=== PATIENT | female | born 1960 | race Caucasian/White ===

== ENCOUNTER 2025-06-14 18:08 | Emergency (ER) | payer OTHER ==
[2025-06-14 18:36] VITALS: RESP 18; TEMP 97.7
[2025-06-14 18:38] VITALS: BMI 19.3
[2025-06-14 18:44] LABS: ABSOLUTE IMMATURE GRANULOCYTES 0.04 x10^3/uL (0.0-0.031); BASOPHILS # 0.02 x10^3/uL (0.01-0.08); EOSINOPHIL % 0.1 % (0.7-5.8); EOSINOPHILS # 0.01 x10^3/uL (0.04-0.36); MCHC 33.2 g/dl (32.2-35.5); MEAN CELL VOLUME 93.3 fl (79.4-94.8); MEAN PLT VOLUME 10.1 fl (9.4-12.3); MONOCYTE # 0.80 x10^3/uL (0.24-0.86); MONOCYTE % 5.8 % (4.7-12.5); RDW 12.0 % (12.4-16.4)
[2025-06-14 18:54] LABS: INR 1.04 (0.83-1.09); PROTHROMBIN TIME (PATIENT) 11.5 SEC (9.7-13.0)
[2025-06-14 18:56] LABS: ACTIVATED PTT 26.9 SECONDS (25.2-36.5)
[2025-06-14 19:04] LABS: ALK PHOS 61.0 U/L (45-117); CO2 28.0 mmol/L (21-32); CREATININE 0.8 mg/dl (0.6-1.3); GLUCOSE,RANDOM 152.0 mg/dl (74-106); SGOT/AST 25.0 U/L (15-37); SGPT/ALT 10.0 U/L (7-52); TOT PROT 6.5 g/dl (6.4-8.2)
[2025-06-14] MEDS ORDERED: NITROGLYCERIN SUBLINGUAL 1/150 0.4 MG TAB ONE (20:06)
[2025-06-14] MEDS ORDERED: ASPIRIN 81 MG CHEWABLE TABLETS ONE (20:06)
[2025-06-14] MEDS: ASPIRIN 81 MG CHEWABLE TABLETS PO ONE (20:09)
[2025-06-14] MEDS: SODIUM CHLORIDE 250 ML IV STA ×2 (20:09→21:46)
[2025-06-14] MEDS: NITROGLYCERIN SUBLINGUAL 1/150 0.4 MG TAB SL ONE (20:09)
[2025-06-14] MEDS ORDERED: NITROGLYCERIN SUBLINGUAL 1/150 0.4 MG TAB SL ONE (20:34)
[2025-06-14] MEDS: ACETAMINOPHEN 1000 MG/100 ML BAG IVPB ONE (20:43)
[2025-06-14] MEDS ORDERED: ACETAMINOPHEN INJECTION 100 ML ONE (20:44)
[2025-06-14 21:20] LABS: HCV DIAGNOSTIC IN-HOUSE W/RFLX NON-REACTIVE (NONREACTIVE)
[2025-06-14 21:22] LABS: HIV INTERPRETATION NEGATIVE (NEGATIVE)
[2025-06-14 22:40] VITALS: BP 106/55; PULSE 52
[2025-06-14] MEDS ORDERED: HEPARIN NA (PORCINE) 5,000 UNITS/ML 1ML VIAL IVPUSH PRN ×2 (22:49)
[2025-06-14] MEDS ORDERED: CLOPIDOGREL BISULFATE 300 MG TABLET ONE (23:18)
[2025-06-14] MEDS ORDERED: HEPARIN NA (PORCINE) 5,000 UNITS/ML 1ML VIAL ONE (23:18)
[2025-06-14] MEDS ORDERED: HEPARIN INFUSION - 25,000 UNITS/500 ML INFUS.BAG ONE (23:18)
[2025-06-14] MEDS: HEPARIN NA (PORCINE) 5,000 UNITS/ML 1ML VIAL IVPUSH ONE (23:41)
[2025-06-14] MEDS: HEPARIN INFUSION - 25,000 UNITS/500 ML INFUS.BAG IVPB SCH (23:55)
[2025-06-14] MEDS: CLOPIDOGREL BISULFATE 300 MG TABLET PO ONE (23:57)
== END 2025-06-15 00:19 | disposition short-term general hospital (02) ==
LOC: FER 18:08
PROC: 3E033NZ Introduction of Analgesics, Hypnotics, Sedatives into Peripheral Vein, Percutaneous Approach (ICD-10-PCS; principal; 2025-06-14)
PROC: 3E033GC Introduction of Other Therapeutic Substance into Peripheral Vein, Percutaneous Approach (ICD-10-PCS; 2025-06-14)
PROC: 3E0337Z Introduction of Electrolytic and Water Balance Substance into Peripheral Vein, Percutaneous Approach (ICD-10-PCS; 2025-06-14)
PROC: 3E0337Z Introduction of Electrolytic and Water Balance Substance into Peripheral Vein, Percutaneous Approach (ICD-10-PCS; 2025-06-14)
DX: I24.9 Acute ischemic heart disease, unspecified (principal); R79.89 Other specified abnormal findings of blood chemistry; R07.89 Other chest pain; R05.9 Cough, unspecified; R53.1 Weakness; R63.8 Other symptoms and signs concerning food and fluid intake; R00.1 Bradycardia, unspecified; T59.91XA Toxic effect of unspecified gases, fumes and vapors, accidental (unintentional), initial encounter
CPT/HCPCS: 36415; 71045-TC-FY; 80053; 84484; 85025; 85610; 85730; 86803; 86850; 86900; 86901; 87389; 87637-QW; 93005; 99285-25; J1644